=== PATIENT | male | born 1985 ===

== ENCOUNTER → 2022-11-20 14:47 | Outpatient (BNVA) | payer OTHER, SELFPAY | PROVIDERS: Visit Provider Podiatrist Foot & Ankle Surgery | DX: M76.821 Posterior tibial tendinitis, right leg; G57.61 Lesion of plantar nerve, right lower limb; M65.071 Abscess of tendon sheath, right ankle and foot | CPT/HCPCS: 73610; 99204 ==

== ENCOUNTER 2022-12-13 14:48 | Outpatient (CLI) | payer OTHER, SELFPAY ==
--- NOTE | 2022-12-13 15:30 | MR_ITS ---
WS: [id number] EXAMINATION: MR foot RT wo con* [id number], MR ankle RT wo con* [id number] ORDER DATE: 12/13/2022 3:21 PM COMPARISON: None. HISTORY: elevate flexor tendon at master knot of Roshan tarsal tunnel CONTRAST: None. TECHNIQUE: MRI of the RIGHT foot and ankle. Sagittal T1, sagittal STIR, coronal PD, coronal T2, axial T1, axial T2, and axial PD imaging with fat saturation technique. FINDINGS: Pes planus. Normal ankle mortise. Normal medial and lateral malleolus. Talar dome appears n ormal. No evidence of avascular necrosis. Distal Achilles is normal in appearance. Normal peroneal te ndons. Trace tenosynovitis along the tibialis posterior. Small amount of tenosynovitis involving the flexor digitorum longus and flexor hallucis longus. The extensor compartment tendons are normal in appearance. Tiny amount of subchondral edema in the ta lar dome laterally with a tiny osteochondral defect measuring 3 mm. No subchondral collapse. Normal m edial and lateral malleolus. Tarsal tunnel is normal in appearance. Normal traversing flexor hallucis and flexor digitorum longus. No fluid collections in this area. Tiny ankle effusion. ATF appears intact. Normal bone marrow signal in the navicular and cuboid. Layla l calcaneus.Normal plantar aponeurosis. IMPRESSION: 1. Normal tarsal tunnel. Small amount of tenosynovitis involving the flexor hallucis longus and flex or digitorum longus. 2. Tiny osteochondral defect with edema in the lateral talar dome. No subchondral collapse. 3. Tenosynovitis involving the tibialis posterior. 4. Normal peroneal tendons. 5. Pes planus. 6. Distal Achilles is normal in appearance. 7. Tiny ankle effusion. ATF appears intact.
--- NOTE | 2022-12-13 15:54 | MR_ITS ---
WS: [id number] EXAMINATION: MR foot RT wo con* [id number], MR ankle RT wo con* [id number] ORDER DATE: 12/13/2022 3:21 PM COMPARISON: None. HISTORY: elevate flexor tendon at master knot of Roshan tarsal tunnel CONTRAST: None. TECHNIQUE: MRI of the RIGHT foot and ankle. Sagittal T1, sagittal STIR, coronal PD, coronal T2, axial T1, axial T2, and axial PD imaging with fat saturation technique. FINDINGS: Pes planus. Normal ankle mortise. Normal medial and lateral malleolus. Talar dome appears n ormal. No evidence of avascular necrosis. Distal Achilles is normal in appearance. Normal peroneal te ndons. Trace tenosynovitis along the tibialis posterior. Small amount of tenosynovitis involving the flexor digitorum longus and flexor hallucis longus. The extensor compartment tendons are normal in appearance. Tiny amount of subchondral edema in the ta lar dome laterally with a tiny osteochondral defect measuring 3 mm. No subchondral collapse. Normal m edial and lateral malleolus. Tarsal tunnel is normal in appearance. Normal traversing flexor hallucis and flexor digitorum longus. No fluid collections in this area. Tiny ankle effusion. ATF appears intact. Normal bone marrow signal in the navicular and cuboid. Layla l calcaneus.Normal plantar aponeurosis. IMPRESSION: 1. Normal tarsal tunnel. Small amount of tenosynovitis involving the flexor hallucis longus and flex or digitorum longus. 2. Tiny osteochondral defect with edema in the lateral talar dome. No subchondral collapse. 3. Tenosynovitis involving the tibialis posterior. 4. Normal peroneal tendons. 5. Pes planus. 6. Distal Achilles is normal in appearance. 7. Tiny ankle effusion. ATF appears intact.
== END 2022-12-13 14:49 | disposition home or self-care (01) ==
LOC: RAD 14:52
PROVIDERS: Visit Provider Podiatrist Foot & Ankle Surgery
DX: M76.821 Posterior tibial tendinitis, right leg (principal); G57.61 Lesion of plantar nerve, right lower limb; M65.871 Other synovitis and tenosynovitis, right ankle and foot; M21.41 Flat foot [pes planus] (acquired), right foot
CPT/HCPCS: 73718; 73721

== ENCOUNTER → 2022-12-22 14:57 | Outpatient (BNVA) | payer OTHER, SELFPAY | PROVIDERS: Visit Provider Podiatrist Foot & Ankle Surgery | DX: M76.821 Posterior tibial tendinitis, right leg (principal); G57.61 Lesion of plantar nerve, right lower limb; M65.871 Other synovitis and tenosynovitis, right ankle and foot | CPT/HCPCS: 99213 ==

== ENCOUNTER 2023-01-05 08:28 | Outpatient (RCR) | payer OTHER, SELFPAY | END 2023-01-13 23:59 | disposition home or self-care (01) | LOC: SPT 08:28 | PROVIDERS: PCP Emergency Medicine Emergency Medical Services; Visit Provider Podiatrist Foot & Ankle Surgery | DX: M76.821 Posterior tibial tendinitis, right leg (principal); M25.571 Pain in right ankle and joints of right foot | CPT/HCPCS: 97140; 97161 ==